=== PATIENT | female | born 1990 | race Caucasian/White ===

== ENCOUNTER 2021-07-26 10:21 | Outpatient (CLI) | payer BC, SELFPAY ==
[2021-07-26 11:25] LABS: SARS-CoV-2 RNA PCR Positive (Negative)
== END 2021-07-26 10:22 | disposition home or self-care (01) ==
LOC: CHSLAB 10:23
PROVIDERS: PCP Nurse Practitioner Family; Visit Provider Nurse Practitioner Family
DX: U07.1 COVID-19 (principal); R50.9 Fever, unspecified
CPT/HCPCS: C9803; U0003; U0005

== ENCOUNTER 2022-07-12 15:00 | Emergency (ER) | payer OTHER, SELFPAY ==
[2022-07-12 15:03] VITALS: BP 143/93; PULSE 88; RESP 16; TEMP 36.4; O2SAT 100
[2022-07-12 15:58] LABS: Basophils Percent Auto 0.2 % (0.2-1.2); Eosinophils Percent Auto 0.3 % (0-4.4); Hematocrit 43.2 % (37.0-47.0); Hemoglobin 14.6 g/dL (12.0-15.0); Immature Granulocyte Absolute 0.06 K/mm3 (0.00-0.031); Immature Granulocyte Percent A 0.4 % (0-0.5); Lymphocytes Absolute Auto 1.73 K/mm3 (0.9-3.2); Lymphocytes Percent Auto 11.5 % (18.3-44.2); Mean Corpuscular HGB Conc 33.8 g/dl (32-36); Mean Corpuscular Hemoglobin 31.4 pg (26-34); Mean Corpuscular Volume 92.9 fl (80-100); Mean Platelet Volume 10.6 fl (7.4-10.4); Monocytes Percent Auto 6.6 % (2.6-8.5); Neutrophils Absolute Auto 12.2 K/mm3 (1.3-6.7); Platelet Count Result 263 k/mm3 (150-375); Red Blood Count 4.65 M/mm3 (4.2-5.4); Red Cell Distribution Width 12.2 % (11.5-14.5); White Blood Count 15.1 K/mm3 (4.5-10.0)
[2022-07-12 16:08] LABS: Alanine Aminotransferase 26 U/L (6-35); Albumin Level 4.6 g/dL (3.5-5.1); Alkaline Phosphatase 77 U/L (38-126); Anion Gap 8 mmol/L (8-16); Aspartate Amino Transferase 25 U/L (14-36); Bilirubin,Total 1.2 mg/dL (0.2-1.3); Blood Urea Nitrogen 14 mg/dL (7-17); Carbon Dioxide 28 mmol/L (22-30); Chloride 100 mmol/L (98-107); Estimated CRCL calculation 114 ml/min; Estimated Glomerular Filt Rate > 60; Glucose 118 mg/dL (65-110); Lipase 73 U/L (23-300); Sodium 136 mmol/L (137-145)
[2022-07-12 16:40] LABS: Add Urine Microscopic? YES; Appearance Urine Slightly Cloudy (Clear); Bilirubin Urine 1+ (Negative); Blood Urine 2+ (Negative); Color Urine Yellow (Yellow); Glucose Urine UA Negative (Negative); Ketones Urine Negative (Negative); Leukocyte Esterase Ur Negative LEU/UL (Negative); Nitrate Urine Negative (Negative); Protein Urine Trace mg/dL (Negative); Specific Grav Ur >= 1.030 (1.001-1.035); Urobilinogen Urine 0.2 mg/dL (<2.0); pH Urine 5.5 (5.0-9.0)
[2022-07-12 17:08] LABS: Bacteria Urine Trace /hpf; Mucus Urine Heavy /lpf; RBC Urine 21-50 /hpf (0-2); Squamous Epithelial Cell Urine Many /hpf (Few); WBC Urine 0-3 /hpf
--- NOTE | 2022-07-12 19:45 | PC.NURSE ---
no answer when name called for repeat vitals
== END 2022-07-12 19:45 | disposition left against medical advice (07) ==
PROVIDERS: Emergency Provider Emergency Medicine; PCP Nurse Practitioner Family
DX: R10.31 Right lower quadrant pain (principal)
CPT/HCPCS: 36415; 80053; 81001; 81025; 83690; 85025; 99199

== ENCOUNTER 2022-07-12 16:48 | Emergency (ER) | payer OTHER, SELFPAY ==
--- NOTE | ~2022-07-12 | CT_ITS ---
EXAMINATION: CT abdomen pelvis wo con DATE: 07/12/2022 18:25 INDICATION: Right flank and lower quadrant pain TECHNIQUE: Computed tomography (CT) of the abdomen and pelvis was performed without intravenous contr ast. The dose-length product (DLP) was 1444.87 mGy-cm. Automated exposure control and iterative recon struction technique were employed. COMPARISON: None FINDINGS: The lung bases are clear. The heart size is normal. The gallbladder is surgically absent. T he liver, spleen, pancreas, and adrenal glands are normal. There appears to be a 1 mm stone at the ri ght ureterovesicular junction causing mild hydroureteronephrosis. There is a 2 mm nonobstructing ston e of the left kidney. No pathologically enlarged abdominal or pelvic lymph nodes are identified. The appendix is normal. There is no free intraperitoneal gas or evidence of bowel obstruction. IMPRESSION: 1. 1 mm stone at the right ureterovesicular junction causing mild hydroureteronephrosis. Reviewed, dictated and finalized at location [facility] IMPRESSION: 1. 1 mm stone at the right ureterovesicular junction causing mild hydroureteron ephrosis.
[2022-07-12 16:49] VITALS: BP 126/87; PULSE 88; RESP 20; TEMP 36.4; O2SAT 100
[2022-07-12 16:55] VITALS: BP 126/87; PULSE 80; RESP 18; TEMP 36.4; O2SAT 100
[2022-07-12 17:02] VITALS: BP 126/87; PULSE 88; RESP 20; TEMP 36.4; O2SAT 100
--- NOTE | 2022-07-12 17:45 | ED.GENADULT ---
HPI - General Adult General Chief complaint: Abdominal Pain Stated complaint: severe abdominal pain History of Present Illness HPI narrative: The patient is a 32-year-old woman who was otherwise healthy, who developed right flank discomfort since 1:30 p.m. today, for the last 4 hours, radiating to the rightward aspect of the abdomen and posteriorly to the right lower back, constant in nature, waxing and waning in intensity. Associated with 3 episodes of vomiting since onset, as well as continued nausea. No other complaints. No fevers or chills. No hematuria or urinary urgency or frequency or dysuria. Normal bowel movements. The patient has had 2 prior sections and a cholecystectomy. Still has her appendix. No previous history of kidney stones She went to the [place] [facility] where blood and urine testing was done; this revealed hematuria and leukocytosis (see results below). Left without being seen as the wait was long, so she came here. Related Data Allergies Allergy/AdvReac Type Severity Reaction Status Date / Time amoxicillin [Augmentin] Allergy Intermediate uknown Verified 07/12/22 17:01 clavulanic acid [Augmentin] Allergy Intermediate unknown Verified 07/12/22 17:01 AMOXICILLIN TRIHYDRATE Allergy Intermediate Rash Uncoded 06/07/21 08:11 POTASSIUM CLAVULANATE Allergy Intermediate Rash Uncoded 06/07/21 08:11 Review of Systems Review of Systems: All systems reviewed & are unremarkable except as noted in HPI and below Constitutional: Constitutional: Reports no additional constitutional complaints, Denies anorexia, Denies body ache(s), Denies chills, Denies excessive sweating, Denies fatigue, Denies fever(s), Denies frequent falls, Denies headache(s), Reports malaise and Denies poor appetite Eyes: Eyes: Reports no additional eye complaints, Denies blurry vision, Denies change in vision, Denies irritation, Denies itchy eyes and Denies photophobia ENT: Reports system reviewed and no additional complaints, except as documented, Reports Normal hearing present, Denies change in voice, Denies dysphagia, Denies vertigo, Denies dizziness, Denies ear discharge, Denies headache(s), Denies hearing loss, Denies hoarseness, Denies nasal congestion, Denies neck pain, Denies sinus pressure, Denies sore throat and Denies throat swelling Cardiovascular: Cardiovascular: Reports no additional cardiovascular complaints, Denies chest pain, Denies syncope, Denies rapid heart rate, Denies irregular heart rhythm, Denies leg edema, Denies dyspnea and Denies slow heart rate Respiratory: Respiratory: Reports no additional respiratory complaints, Denies cough, Denies dyspnea, Denies stridor and Denies wheezing Gastrointestinal: Gastrointestinal: Reports no additional gastrointestinal complaints, Reports abdominal pain, Denies melena, Denies hematochezia, Denies dysphagia, Denies diarrhea, Reports nausea and Reports vomiting Genitourinary: Genitourinary: Denies hematuria, Denies urinary frequency, Denies dysuria, Denies flank pain and Denies urinary urgency Musculoskeletal: Musculoskeletal: Reports no additional musculoskeletal complaints, Denies abnormal gait, Reports back pain, Denies myalgias, Denies arthralgias, Denies joint swelling, Denies limited range of motion, Denies muscle cramps, Denies muscle weakness, Denies neck pain and Denies numbness Integumentary/Breasts: Skin/Breast: Reports system reviewed and no additional complaints, except as docu, Denies breast pain, Denies change in pigmentation, Denies pruritus, Denies erythema and Denies wounds Neurologic: Reports system reviewed and no additional complaints, except as documented, Reports Normal hearing present, Denies Abnormal speech present, Denies abnormal gait, Denies confusion, Denies vertigo, Denies dizziness, Denies syncope, Denies frequent falls, Denies headache(s), Denies focal weakness, Denies numbness and Denies paresthesias Psychiatric: Psychiatric: Reports no additional psychiatric complaint
[2022-07-12] MEDS: SODIUM CHLORIDE 0.9% IV 1,000 ML 999 ML IV CONT (17:53)
[2022-07-12] MEDS: KETOROLAC 30 MG/ML VIAL (*BKC) IV PUSH (17:55)
[2022-07-12] MEDS: METOCLOPRAMIDE HCL INJ 10 MG/2 ML VIAL IV PUSH (17:56)
[2022-07-12] MEDS: ONDANSETRON INJ 4 MG/2 ML VIAL IV PUSH (17:58)
[2022-07-12 18:08] LABS: SPREG INTERNAL CONTROL Positive; Serum Qual hCG Negative
[2022-07-12 18:11] LABS: Amylase 53 U/L (25-115); Lipase 29 U/L (16-77)
[2022-07-12] MEDS: TAMSULOSIN HCL 0.4 MG CAPSULE PO (19:50)
[2022-07-12 20:07] VITALS: BP 120/89; PULSE 70; RESP 18; TEMP 36.6; O2SAT 99
== END 2022-07-12 20:08 | disposition home or self-care (01) ==
PROVIDERS: Emergency Provider Emergency Medicine; PCP Nurse Practitioner Family
DX: N20.1 Calculus of ureter (principal)
CPT/HCPCS: 36415; 74176; 82150; 83690; 84703; 96361; 96374; 96375; 99284; A9270; J1885; J2405; J2765; J7030

== ENCOUNTER 2024-06-02 05:48 | Emergency (ER) | payer OTHER, SELFPAY ==
--- NOTE | ~2024-06-02 | CT_ITS ---
Non-contrast CT scan of the Abdomen and Pelvis Clinical indication: Left flank pain Technique: 2.5 mm axial scans were obtained through the abdomen and pelvis without intravenous or or al contrast. Dose reduction technique was used on this scan by utilizing automated exposure control a nd iterative reconstruction technique. The dose-length product (DLP) was 807.59 mGy-cm. COMPARISON: 07/12/2022 Findings: Images through the lung bases reveal minimal patchy groundglass opacity at the right lung base. There is a 2 mm left UVJ stone, with mild left hydroureteronephrosis. No right renal or right uretera l stone. No right hydronephrosis. The liver, spleen, pancreas, and adrenals appear normal. Cholecystectomy clips are present. There is no aortic aneurysm. There is no evidence of bowel obstruction. Very small fat-containing umbilical hernia present. Images through the pelvis were performed. There is no evidence of ascites or lymphadenopathy. Urinary bladder otherwise unremarkable. No adnexal mass seen. Impression: 2 mm left UVJ stone with mild left hydroureteronephrosis. Minimal patchy ground glass opacity right lung base. Correlate for subtle pneumonia. Reviewed, dictated and finalized at [facility]. APPLICATION [employer]CHITECT Impression: 2 mm left UVJ stone with mild left hydroureteronephrosis. Minimal patchy ground glass opacity right lung base. Correlate for subtle pneum onia.
[2024-06-02 05:49] VITALS: BP 152/108; PULSE 98; RESP 18; TEMP 36.6; O2SAT 97
--- NOTE | 2024-06-02 06:06 | ED.GENADULT ---
HPI - General Adult General Chief complaint: Urogenital-Female Stated complaint: abdominal pain History of Present Illness HPI narrative: Nilsa is a 34F that presented to the ED with left flank pain for over 24 hours. It is a significant left flank pain that radiates toward the groin and is better with movement. It feels like a previous stone. There is hematuria, nausea but no CP, dyspnea, vomiting or diarrhea. Related Data Allergies Allergy/AdvReac Type Severity Reaction Status Date / Time amoxicillin [Augmentin] Allergy Intermediate Hives Verified 06/02/24 05:57 clavulanic acid [Augmentin] Allergy Intermediate Hives Verified 06/02/24 05:57 AMOXICILLIN TRIHYDRATE Allergy Intermediate Rash Uncoded 06/07/21 08:11 POTASSIUM CLAVULANATE Allergy Intermediate Rash Uncoded 06/07/21 08:11 Review of Systems Review of Systems: All systems reviewed & are unremarkable except as noted in HPI and below PMFSH Past Medical History Medical History Cholecystectomy planned Surgical History Surgical History H/O: section Social History Social History Smoking status: Never smoker Alcohol intake: current Alcohol use details: social Substance use: never Substance use type: does not use Exam Const: General: cooperative, healthy appearing, comfortable, no acute distress, well developed, alert, awake and Physically active Orientation/consciousness: oriented to person, oriented to place and oriented to time HENMT: Head: normal to inspection, normocephalic and atraumatic Ears: hearing grossly normal bilaterally and external ears normal Face/Nose/Sinus: Normal external nose present Eyes: General: appearance normal, both eyes and all related structures Periorbital: periorbital findings normal Sclera: sclerae normal Pupils: Equal, round and reactive pupils present Neck: Neck: normal visual inspection Chest: Chest palpation & inspection: normal inspection of the chest Resp: Effort & Inspection: normal respiratory effort, able to speak in complete sentences and no respiratory distress Auscultation: clear to auscultation bilaterally Cardio: Jugular venous distension: no JVD Rate: regular rate Rhythm: regular rhythm GI: Inspection: normal to inspection GI Palp: Yes Soft to palpation Auscultation: normal bowel sounds : Other: Mild left flank pain Skin: General skin exam: normal color and no rashes or lesions noted Neuro: General: oriented to person, oriented to place and oriented to time Cranial nerves: Yes Equal, round and reactive pupils present Extrem: General: normal to inspection Course Course Emergency Course: Ordered fluids, Toradol, labs and CT. Non-contrast CT scan of the Abdomen and Pelvis Clinical indication: Left flank pain Technique: 2.5 mm axial scans were obtained through the abdomen and pelvis without intravenous or oral contrast. Dose reduction technique was used on this scan by utilizing automated exposure control and iterative reconstruction technique. The dose-length product (DLP) was 807.59 mGy-cm. COMPARISON: 07/12/2022 Findings: Images through the lung bases reveal minimal patchy groundglass opacity at the right lung base. There is a 2 mm left UVJ stone, with mild left hydroureteronephrosis. No right renal or right ureteral stone. No right hydronephrosis. The liver, spleen, pancreas, and adrenals appear normal. Cholecystectomy clips are present. There is no aortic aneurysm. There is no evidence of bowel obstruction. Very small fat-containing umbilical hernia present. Images through the pelvis were performed. There is no evidence of ascites or lymphadenopathy. Urinary bladder otherwise unremarkable. No adnexal mass seen. Impression: 2 mm left UVJ stone with mild left hydroureteronephrosis. Minimal patchy ground glass opacity right lung base. Correlate for subtle pneumonia. Vital Signs Vital signs: Vital Signs Oxygen Delivery Room Air 06/02/24 05:48 Temperature 97.9 F 06/02/24 05:49 Pulse Rate 98 06/02/24 05:49 Respiratory Rate 18 06/02/24 05:49 Blood Pressure 152/108 H 06/02/24 05:49 Pulse Oximetry 97 06/02/24 05:49 Oxygen Delivery Room Air 06/02/24 05:49 Medical Decision Making Vital Signs Vital Signs: Vital Signs Oxygen Delivery Room Air 06/02/24 05:48 Temperature 97.9 F 06/02/24 05:49 Pulse Rate 98 06/02/24 05:49 Respiratory Rate 18 06/02/24 05:49 Blood Pressure 152/108 H 06/02/24 05:49 Pulse Oximetry 97 06/02/24 05:49 Oxygen Delivery Room Air 06/02/24 05:49 Lab Data 06/02/24 06:14 06/02/24 06:14 Labs: Lab Results 06/02/24 06/02/24 Range/Units 05:55 06:14 WBC 8.6 (4.8-10.8) K/mm3 RBC 4.51 (4.20-5.40) M/mm3 Hgb 13.9 (12.0-15.0) g/dL Hct 41.0 (35.0-49.0) % MCV 90.9 (78.0-102.0) fL MCH 30.8 (27.0-31.0) pg MCHC 33.9 (32-36) g/dL RDW 12.4 (11.6-14.4) % Plt Count 248 (150-420) K/mm3 MPV 10.8 (9.2-11.8) fl Immature Gran % (Auto) 0.2 H (0.0-0.0) % Neut % (Auto) 67.2 (50.0-70.0) % Lymph % (Auto) 20.7 (18.0-42.0) % [place] % (Auto) 10.5 (2.0-11.0) % Eos % (Auto) 1.2 (1.0-6.0) % Baso % (Auto) 0.2 (0.0-1.0) % Lymph # (Auto) 1.78 (1.10-4.50) K/mm3 [place] # (Auto) 0.90 (0.10-0.90) K/mm3 Eos # (Auto) 0.10 (0.02-0.50) K/mm3 Baso # (Auto) 0.02 (0.00-0.10) K/mm3 Abs Immat Gran (auto) 0.02 H (0.00-0.00) K/mm3 Absolute Neuts (auto) 5.79 (1.70-7.20) K/mm3 Absolute Nucleated RBC 0.00 (0.00-0.00) K/mm3 Nucleated RBC % 0.0 (0-0.0) % Sodium 142 (136-145) mmol/L Potassium 4.1 (3.5-5.1) mmol/L Chloride 105 (98-108) mmol/L Carbon Dioxide 27 (21-32) mmol/L Anion Gap 10 (4-12) mmol/L BUN 14 (7-18) mg/dL Creatinine 1.43 H (0.55-1.02) mg/dL Estim Creat Clear Calc 59 ml/min Estimated GFR 42 L (59 - ) Glucose 113 H (70-99) mg/dL Calculated Osmolality 295 (285-295) mOsm/kg Calcium 9.1 (8.5-10.1) mg/dL Total Bilirubin 1.0 (0.00-1.00) mg/dL AST 18 (15-37) U/L ALT 25 (14-59) U/L Alkaline Phosphatase 91 (46-116) U/L Total Protein 7.2 (6.4-8.2) g/dL Albumin 3.3 L (3.4-5.0) g/dL Lipase 32 (16-77) U/L Urine Color Yellow (Yellow) Urine Appearance Clear (Clear) Urine pH 5.0 (5.0-8.0) Ur Specific [place] >= 1.030 H (1.010-1.020) Urine Protein Trace H (Negative) Urine Glucose (UA) Negative (Negative) Urine Ketones Trace H (Negative) Ur Blood (Man) 2+ H (Negative) Urine Nitrate Negative (Negative) Urine Bilirubin 1+ H (Negative) Urine Urobilinogen 0.2 (0.2-1.0) mg/dL Leukocyte Esterase Rfl Negative (Negative) IRIS/UL Urine RBC 3-5 H (0-2) /hpf Urine WBC None seen (0-3) /hpf Ur Squamous Epith Cells Moderate H (Few) /hpf Urine Bacteria 1+ H (None) /hpf Urine Test Negative Discharge Plan Discharge Clinical Impression: Ureterolithiasis Patient Disposition: Home, Self-Care Condition: Stable Instructions: Kidney Stones (ED) Prescriptions: New tamsulosin 0.4 mg capsule 0.4 mg PO DAILY Qty: 7 0RF hydrocodone-acetaminophen 5-325 mg tablet 1 tablet PO Q8H PRN (Reason: pain) Qty: 10 0RF Follow-up/Referrals: Kaitlynn Stephens NP [Primary Care Provider] -
[2024-06-02 06:10] LABS: Add Urine Microscopic? YES; Appearance Urine Clear (Clear); Bilirubin Urine 1+ (Negative); Blood Urine 2+ (Negative); Color Urine Yellow (Yellow); Glucose Urine UA Negative (Negative); Ketones Urine Trace (Negative); Leukocyte Esterase Ur Negative LEU/UL (Negative); Nitrate Urine Negative (Negative); Protein Urine Trace (Negative); Specific Grav Ur >= 1.030 (1.010-1.020); Urobilinogen Urine 0.2 mg/dL (0.2-1.0)
[2024-06-02 06:18] LABS: Basophils Absolute Auto 0.02 K/mm3 (0.00-0.10); Basophils Percent Auto 0.2 % (0.0-1.0); Eosinophils Percent Auto 1.2 % (1.0-6.0); Hemoglobin 13.9 g/dL (12.0-15.0); Immature Granulocyte Absolute 0.02 K/mm3 (0.00-0.00); Immature Granulocyte Percent A 0.2 % (0.0-0.0); Lymphocytes Absolute Auto 1.78 K/mm3 (1.10-4.50); Lymphocytes Percent Auto 20.7 % (18.0-42.0); Mean Corpuscular HGB Conc 33.9 g/dL (32-36); Mean Corpuscular Hemoglobin 30.8 pg (27.0-31.0); Mean Corpuscular Volume 90.9 fL (78.0-102.0); Mean Platelet Volume 10.8 fl (9.2-11.8); Monocytes Percent Auto 10.5 % (2.0-11.0); Neutrophils Absolute Auto 5.79 K/mm3 (1.70-7.20); Neutrophils Percent Auto 67.2 % (50.0-70.0); Platelet Count Result 248 K/mm3 (150-420); Red Blood Count 4.51 M/mm3 (4.20-5.40); Red Cell Distribution Width 12.4 % (11.6-14.4); White Blood Count 8.6 K/mm3 (4.8-10.8)
[2024-06-02] MEDS: KETOROLAC 30 MG/ML VIAL (*BKC) IM (06:20)
[2024-06-02 06:21] LABS: Pregnancy On Board Control Positive; Urine Pregnancy Test Negative
[2024-06-02] MEDS: ONDANSETRON INJ 4 MG/2 ML VIAL IV PUSH (06:21)
[2024-06-02] MEDS: SODIUM CHLORIDE 0.9% IV 1,000 ML 999 ML IV CONT (06:22)
[2024-06-02 06:26] LABS: Bacteria Urine 1+ /hpf; Squamous Epithelial Cell Urine Moderate /hpf (Few); WBC Urine None seen /hpf (0-3)
[2024-06-02 06:34] LABS: Alanine Aminotransferase 25 U/L (14-59); Albumin Level 3.3 g/dL (3.4-5.0); Alkaline Phosphatase 91 U/L (46-116); Anion Gap 10 mmol/L (4-12); Aspartate Amino Transferase 18 U/L (15-37); Blood Urea Nitrogen 14 mg/dL (7-18); Calcium 9.1 mg/dL (8.5-10.1); Carbon Dioxide 27 mmol/L (21-32); Chloride 105 mmol/L (98-108); Estimated CRCL calculation 59 ml/min; Estimated Glomerular Filt Rate 42; Glucose 113 mg/dL (70-99); Lipase 32 U/L (16-77); Osmolality Calculated 295 mOsm/kg (285-295); Potassium 4.1 mmol/L (3.5-5.1); Sodium 142 mmol/L (136-145); Total Protein 7.2 g/dL (6.4-8.2)
[2024-06-02 07:00] VITALS: BP 150/102; PULSE 84; RESP 18; O2SAT 98
--- NOTE | 2024-06-02 07:22 | PC.NURSE ---
report from baldemar Riojas. pt is sitting up on stretcher smiling at this time. pt reports she is pain free. pt has ivf infusing as ordered without difficulty. pt reports a recent respiratory illness, however reports she is feeling much better, denies cough or difficulty breathing. pt is unaware of elevated bp, denies any symptoms. erp is aware. pt is to be dc home when ivf have completed infusing. Will continue to monitor.
[2024-06-02 07:35] VITALS: BP 131/94; PULSE 80; RESP 18; TEMP 36.7; O2SAT 98
[2024-06-06 06:59] LABS: Hemoglobin A1C 5.3 % (<5.7)
== END 2024-06-02 07:35 | disposition home or self-care (01) ==
PROVIDERS: Emergency Provider Family Medicine; PCP Nurse Practitioner Family
DX: N20.1 Calculus of ureter (principal)
CPT/HCPCS: 36415; 74176; 80053; 81001; 81025; 83036; 83690; 85025; 96361; 96372; 96374; 99284; J1885; J2405; J7030

== ENCOUNTER 2025-04-17 14:31 | Outpatient (CLI) | payer OTHER, SELFPAY ==
--- NOTE | ~2025-04-17 | XR_ITS ---
EXAMINATION: XR knee LT min 4V, 04/17/2025 14:30 CDT HISTORY: M25.562 - Pain in left knee COMPARISON: No comparisons available. Findings: No acute fracture or malalignment. No significant degenerative changes. Soft tissues unremarkable. Impression: No acute fracture or malalignment. Reviewed, dictated and finalized at location [facility]. Impression: No acute fracture or malalignment.
== END 2025-04-17 14:32 | disposition home or self-care (01) ==
PROVIDERS: PCP Family Medicine; Visit Provider Family Medicine
DX: M25.562 Pain in left knee (principal)
CPT/HCPCS: 73564

== ENCOUNTER 2025-04-22 14:25 | Outpatient (CLI) | payer OTHER, SELFPAY ==
--- NOTE | ~2025-04-22 | MR_ITS ---
EXAMINATION: MR knee LT wo con DATE: 04/22/2025 15:06 INDICATION: Left knee instability TECHNIQUE: Magnetic resonance imaging (MRI) of the left knee was performed without intravenous contrast. Sequences included coronal PD-weighted FSE, coronal PD-weighted FS FSE, sagittal T2-weighted FSE, sagittal PD-weighted FS FSE and axial PD weighted fat saturated FSE. COMPARISON: None. FINDINGS: Medial compartment: Medial meniscus is normal. Articular cartilage is normal. Lateral compartment: Lateral meniscus is normal. Articular cartilage is normal. Patellofemoral compartment: Partial-thickness chondral fissuring involve at least 50% the cartilage thickness but without degenerative subchondral changes at both the medial and lateral patellar facets. Additional deep chondral fissuring involving greater than 50% the cartilage thickness at the inferior aspect of the medial trochlea. Less severe chondral fissure at the central aspect of the trochlear groove. Ligaments and tendons: Anterior and posterior cruciate ligaments are normal. The fibular collateral ligament complex is normal. There is a mild partial tear involving the anterior margin of the proximal medial collateral ligament. The extensor mechanism is normal. The visualized medial and lateral hamstring tendons as well as the iliotibial band are normal. Fluid: Small to moderate-sized left knee joint effusion at the suprapatellar pouch. No loose osteochondral bodies identified. Osseous/other: Low signal intensity bone island at the medial femoral condyle. Bone marrow signal is normal with no fracture or pathologic marrow replacing process. IMPRESSION: 1. 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 2. Mild partial-thickness tear along the anterior margin of the proximal medial collateral ligament. 3. Small to moderate-sized left knee joint effusion. Reviewed, dictated and finalized at location A. IMPRESSION: 1. 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 2. Mild partial-thickness tear along the anterior margin of the proximal medial collateral ligament. 3. Small to moderate-sized left knee joint effusion.
== END 2025-04-22 14:26 | disposition home or self-care (01) ==
PROVIDERS: PCP Family Medicine; Visit Provider Nurse Practitioner Family
DX: M25.462 Effusion, left knee (principal); M17.12 Unilateral primary osteoarthritis, left knee; S83.412A Sprain of medial collateral ligament of left knee, initial encounter; X58.XXXA Exposure to other specified factors, initial encounter
CPT/HCPCS: 73721